=== PATIENT | male | born 2000 | race African-American/Black ===

== ENCOUNTER 2021-12-13 13:08 | Emergency (ER) | payer MEDICAID, OTHER ==
[~2021-12-13] VITALS: Ht 175.3 cm; Wt 80.0 kg
[2021-12-13 14:37] LABS: BASOPHILS % 0.4 % (0.0-2.0); EOSINOPHILS % 0.3 % (0.0-5.0); HEMATOCRIT. 41.4 % (42.0-52.0); MEAN CORPUSCULAR HEMOGLOBIN 28.8 pg (28.0-32.0); MEAN CORPUSCULAR VOLUME 84.9 fL (80.0-94.0); MEAN PLATELET VOLUME 8.4 fl (7.4-10.4); MONOCYTES % 13.3 % (2.0-8.0); PLATELET 193 x1000/uL (130-400); RED BLOOD CELL COUNT 4.87 mill/uL (4.7-6.1)
[2021-12-13 14:46] LABS: CHLORIDE 110 mEq/L (98-107)
[2021-12-13 14:50] LABS: ETHANOL BLOOD < 10 mg/dL
[2021-12-13 22:48] LABS: CLARITY URINE CLEAR (CLEAR); COLOR URINE YELLOW (YELLOW); KETONES URINE TRACE (NEGATIVE); LEUKOCYTE ESTERASE URINE NEGATIVE (NEGATIVE); NITRITE URINE NEGATIVE (NEGATIVE); OCCULT BLOOD URINE 1+ (NEGATIVE); PH URINE 7.5 (4.5-8.0); PROTEIN URINE TRACE (NEGATIVE); SPECIFIC GRAVITY URINE 1.026 (1.005-1.030)
[2021-12-13 23:02] LABS: METHADONE URINE SCREEN NEGATIVE (NEGATIVE)
[2021-12-13 23:03] LABS: *AMPHETAMINES SCREEN URINE NEGATIVE (NEGATIVE); *BARBITURATES SCREEN URINE NEGATIVE (NEGATIVE); CANNABINOID URINE SCREEN NEGATIVE (NEGATIVE); OPIATES URINE SCREEN NEGATIVE (NEGATIVE); PHENCYCLIDINE URINE SCREEN NEGATIVE (NEGATIVE)
[2021-12-13 23:04] LABS: *BENZODIAZEPINES SCREEN URINE NEGATIVE (NEGATIVE); *COCAINE SCREEN URINE NEGATIVE (NEGATIVE)
[2021-12-14] MEDS: OLANZAPINE 5MG TABLET PO SCH ×2 (10:00→21:28)
[2021-12-14] MEDS: FLUOXETINE HCL 20MG CAPSULE PO SCH (10:00)
[2021-12-15] MEDS: OLANZAPINE 5MG TABLET PO SCH ×2 (10:04→21:02)
[2021-12-15] MEDS: FLUOXETINE HCL 20MG CAPSULE PO SCH (10:04)
[2021-12-15 20:33] VITALS: BP 125/76
== END 2021-12-15 21:35 ==
LOC: ER 13:08
DX: F99 Mental disorder, not otherwise specified (principal); F20.9 Schizophrenia, unspecified; Z20.822 Contact with and (suspected) exposure to COVID-19
CPT/HCPCS: 36415; 80053; 80305; 80320; 81003; 85025; 99285; U0003; G0480